=== PATIENT | female | born 1970 | race Caucasian/White ===

== ENCOUNTER 2017-03-19 09:15 | Emergency (ER) | payer MEDICAID ==
[2017-03-19 09:27] VITALS: BP 115/84
[2017-03-19 10:24] LABS: % BASOPHILS 0.9 % (0.0-2.0); % EOSINOPHILS 1.5 % (0.0-5.0); % MONOCYTES 3.8 % (2.0-10.0); % NEUTROPHILS 75.8 % (40.0-80.0); HEMATOCRIT 43.4 % (35.0-45.0); HEMOGLOBIN 14.2 gm/dL (11.7-15.5); MEAN CORPUSCULAR HEMOGLOBIN 28.9 pg (27.0-31.0); MEAN CORPUSCULAR HGB CONC 32.8 pg (28.0-36.0); MEAN PLATELET VOLUME 9.2 fl; RED BLOOD COUNT 4.94 Mil/cmm (3.80-5.10); RED CELL DISTRIBUTION WIDTH 14.3 % (11.5-20.0)
[2017-03-19 10:25] LABS: PLATELET COUNT 230 Th/cmm (150-400); WHITE BLOOD COUNT 10.6 Th/cmm (4.8-10.8)
[2017-03-19 10:38] LABS: INR 0.9 (0.5-1.4); PROTHROMBIN TIME (TEST) 9.4 SECONDS (9.5-11.5)
[2017-03-19 10:44] LABS: ALB/GLOB RATIO 1.2 (1.0-1.8); ALKALINE PHOSPHATASE 73 U/L (34-104); ANION GAP 13.1 (7.0-16.0); BILIRUBIN,TOTAL 0.6 mg/dL (0.3-1.0); BUN - UREA NITROGEN 15 mg/dL (7-25); BUN/CREATININE RATIO 21.4; CALCIUM SERUM 9.8 mg/dL (8.6-10.3); CARBON DIOXIDE 25.7 mEq/L (21.0-31.0); CHLORIDE 101 mEq/L (98-107); CREATININE - SERUM 0.7 mg/dL (0.6-1.2); GLUCOSE 111 mg/dL (70-105); POTASSIUM SERUM 3.8 mEq/L (3.5-5.1); SGOT 15 U/L (13-39); SGPT/ALT 14 U/L (7-52); SODIUM SERUM 136 mEq/L (136-145)
[2017-03-19 10:50] LABS: CHOLESTEROL 182 mg/dL (<200); TRIGLYCERIDES 109 mg/dL (<150)
--- NOTE | 2017-03-19 10:59 | ED Physician Chart ---
Chief Complaint/HPI - Patient Information Date Seen:: 03/19/17 Time Seen:: 09:56 History of Present Illness:: THIS IS A 46 YR OLD OBESE FEMALE WHO STATES THAT SHE HAS HAD ABDOMINAL PAIN AND SPITTING UP WHITE FOAM ALL NIGHT. SHE ALSO STATES THAT SHE DIFFICULTY WITH SHORTNESS OF BREATH. Allergies:: Allergies Allergy/AdvReac Type Severity Reaction Status Date / Time No Known Allergies Allergy Verified 03/19/17 09:26 Vitals:: Vital Signs - 8 hr 03/19/17 09:27 Temp 97.2 F HR 88 RR 10 BP 115/84 O2 Sat % 95 Historian:: Patient Review:: Nurse's Note Reviewed Review of Systems - Review of Systems General/Constitutional: No fever, No chills, No weight loss, No weakness, No diaphoresis, No edema, No loss of appetite Skin: No skin lesions, No rash, No bruising Head: No headache, No light-headedness Eyes: No loss of vision, No pain, No diplopia ENT: No earache, No nasal drainage, No sore throat, No tinnitus Neck: No neck pain, No swelling, No thyromegaly, No stiffness, No mass noted Cardio Vascular: No chest pain, No palpitations, No PND, No orthopnea, No edema Pulmonary: No SOB, No cough, No sputum, No wheezing GI: No nausea, No vomiting, No diarrhea, No pain, No melena, No hematochezia, No constipation, No hematemesis G/U: No dysuria, No frequency, No hematuria Musculoskeletal: No bone or joint pain, No back pain, No muscle pain Endocrine: No polyuria, No polydipsia Psychiatric: No prior psych history, No depression, No anxiety, No suicidal ideation Hematopoietic: No bruising, No lymphadenopathy Allergic/Immuno: No urticaria, No angioedema Neurological: No syncope, No focal symptoms, No weakness, No paresthesia, No headache, No seizure, No dizziness, No confusion, No vertigo Past Medical History - Past Medical History Obtainable: Yes Past Medical History: Asthma/COPD, Thyroid disorder, Other (OBESITY) Family History: None Social History: Smoker, No Alcohol, No Drug Use Surgical History: other (RIGHT KNEE SURGERY, TUBALIGATION) Psychiatricy History: None Family Medical History - Family Member Mother History Unknown: Yes Hx Family Cancer: Yes (MOTHER SIDE) Hx Family Coronary Artery Disease: Yes (FATHER SIDE) Hx Family Congestive Heart Failure: No Hx Family Hypertension: Yes (FATHER SIDE) Hx Family Stroke: Yes (FATHER SIDE) Hx Family Diabetes: Yes (FATHER SIDE) Hx Family Seizures: No Hx Family Dementia: No Hx Family AIDS: No Hx Family HIV: No Hx Family COPD: No Hx Family Hepatitis: No Hx Family Psychiatric Problems: No Hx Family Tuberculosis: No Physical Exam - Physical Examination General/Constitutional: Awake, Well-developed, well-nourished, Alert, No distress, GCS 15, Non-toxic appearing, Ambulatory Other Gen/Cons comments:: OBESE Head: Atraumatic Eyes: Lids, conjuctiva normal, PERRL, EOMI Skin: Nl inspection, No rash, No skin lesions, No ecchymosis, Well hydrated, No lymphadenopathy ENMT: External ears, nose nl, Nasal exam nl, Lips, teeth, gums nl Neck: Nontender, Full ROM w/o pain, No JVD, No nuchal rigidity, No bruit, No mass, No stridor Respiratory: Nl effort/Exclusion, Clear to Auscultation, No Wheeze/Rhonchi/Rales Cardio Vascular: RRR, No murmur, gallop, rubs, NL S1 S2 GI: No tenderness/rebounding/guarding, No organomegaly, No hernia, Normal BS's, Nondistended, No mass/bruits, No McBurney tenderness : No CVA tenderness Extremities: No tenderness or effusion, Full ROM, normal strength in all extremities, No edema, Normal digits & nails Neuro/Psych: Alert/oriented, DTR's symmetric, Normal sensory exam, Normal motor strength, Judgement/insight normal, Mood normal, Normal gait, No focal deficits Misc: normal gait, Normal back, No paraspinal tenderness Labs/Radiology/EKG Results - Lab Results Results: Laboratory Tests 03/19/17 03/19/17 10:18 10:18 WBC 10.6 D RBC 4.94 Hgb 14.2 Hct 43.4 MCV 88.0 MCH 28.9 MCHC Differential 32.8 RDW 14.3 Plt Count 230 D MPV 9.2 Neutrophils % 75.8 Lymphocytes % 18.0 L Monocytes % 3.8 Eosinophils % 1.5 Basophils % 0.9 PT 9.4 L INR 0.90 PTT (Actin FS) 26.8 - Radiology Results Results: CHEST X-RAY = CARDIOMEGALY Assessment - Assessment General Assessment: THIS PATIENT WAS GIVEN TORADOL AND FELT BETTER GOING TO SLEEP. SHE WAS TOLD TO SEE HER PMD IN THE AM FOR A REFERRAL TO GET A GASTRIC STAPLING FOR OBESITY CONTROL. ED Septic Shock - . Is Septic Shock (SBP<90, OR Lactate>4 mmol\L) present?: No - <6hrs of presentation: Vital Signs: Vital Signs - 8 hr 03/19/17 09:27 Temp 97.2 F HR 88 RR 10 BP 115/84 O2 Sat % 95 Reassessment (Disposition) - Reassessment Reassessment Condition:: Improved - Diagnosis Diagnosis:: ABDOMINAL PAIN OBESITY - Aftercare/Follow up Instructions Aftercare/Follow-Up Instructions:: Counseled pt regarding lab results/diagnosis & need follow up, Refer to Discharge Instructions, Counseled pt & family regarding lab results/diagnosis & need follow up - Patient Disposition Discharge/Transfer:: Home Condition at Disposition:: Improved
--- NOTE | 2017-03-19 11:16 | Diagnostic Imaging Report ---
Portable chest x-ray HISTORY: Shortness of breath The heart is enlarged. No focal pulmonary processes. No hilar or mediastinal abnormalities. IMPRESSION: 1. Cardiomegaly 2. No acute focal pulmonary processes
== END 2017-03-19 12:00 | disposition home or self-care (01) ==
LOC: ER 09:15
DX: R10.9 Unspecified abdominal pain (principal); E66.9 Obesity, unspecified; J44.9 Chronic obstructive pulmonary disease, unspecified; J45.909 Unspecified asthma, uncomplicated; E07.9 Disorder of thyroid, unspecified; F17.200 Nicotine dependence, unspecified, uncomplicated; Z98.51 Tubal ligation status
CPT/HCPCS: 99285; 71010; 96372; 84484; 83880; 36415; 84443; 86592; 85025; 85610; 85730; 80053; 80061; 87040 ×2; J1885